=== PATIENT | male | born 1955 | race Caucasian/White ===

== ENCOUNTER → 2021-09-21 | Outpatient (CLI) | payer SELFPAY ==
[2021-09-21 19:40] LABS: BASOPHILS ABSOLUTE AUTO 0.06 K/mm3 (0.00-0.23); BASOPHILS PERCENT AUTO 1 % (0-2); EOSINOPHILS ABSOLUTE AUTO 0.25 K/mm3 (0.00-0.68); EOSINOPHILS PERCENT AUTO 4 % (0-6); Hematocrit 32.4 % (37.0-53.0); Hemoglobin 10.3 g/dL (13.5-17.5); IMMATURE GRAN ABSOLUTE AUTO 0.01 K/mm3 (0.00-0.10); IMMATURE GRAN PERCENT AUTO 0 % (0-1); LYMPHOCYTES ABSOLUTE AUTO 1.86 K/mm3 (0.84-5.20); LYMPHOCYTES PERCENT AUTO 28 % (21-46); MONOCYTES ABSOLUTE AUTO 0.53 K/mm3 (0.16-1.47); MONOCYTES PERCENT AUTO 8 % (4-13); Mean Corpuscular HGB 25.9 pg (26.0-34.0); Mean Corpuscular HGB Conc 31.8 g/dL (31.5-36.5); Mean Corpuscular Volume 81 fL (80-100); NEUTROPHILS ABSOLUTE AUTO 3.91 K/mm3 (1.96-9.15); NEUTROPHILS PERCENT AUTO 59 % (41-73); Platelet Count 157 K/mm3 (150-400); RDW Coefficient Variation 13.3 % (11.7-14.2); RDW Standard Deviation 39.4 fL (35.1-46.3); Red Blood Cell Count 3.98 M/mm3 (4.30-5.90); White Blood Cell Count 6.62 K/mm3 (4.00-11.30)
[2021-09-21 20:05] LABS: Alanine Aminotransfer (ALT/SGP 23 U/L (12-78); Albumin, Blood 3.9 g/dL (3.4-5.0); Albumin/Globulin Ratio 0.9 (0.8-1.8); Alk Phos 84 U/L (50-136); Anion Gap 11 mmol/L (6-16); Aspartate Aminotrans (AST/SGOT 31 U/L (12-37); Bilirubin, Total 1.2 mg/dL (0.1-1.0); Blood Urea Nitrogen 12 mg/dL (8-24); Bun/Creatinine Ratio 11.7 (12.0-20.0); CO2, Blood 20 mmol/L (21-32); Calcium, Blood 9.1 mg/dL (8.5-10.1); Chloride, Blood 107 mmol/L (98-108); Creatinine, Blood 1.03 mg/dL (0.60-1.20); Globulin, Blood 4.2 g/dL (2.2-4.0); Glomerular Filtration Rate >60 (60-); Glucose, Blood 130 mg/dL (70-99); Potassium, Blood 3.8 mmol/L (3.5-5.5); Sodium, Blood 138 mmol/L (136-145); Total Protein, Blood 8.1 g/dL (6.4-8.2)
== END ==
LOC: LAB SHORT 19:03
PROVIDERS: Physician Assistant
DX: K92.0 Hematemesis (principal); I10 Essential (primary) hypertension; R60.0 Localized edema; R53.83 Other fatigue
CPT/HCPCS: 80053; 83880; 84443; 85025

== ENCOUNTER 2021-12-17 12:50 | Day surgery (SDC) | payer BC ==
[~2021-12-17] VITALS: Ht 172.7 cm; Wt 112.1 kg
[~2021-12-17 12:50] MED LIST: Atarax10 MG PO; LOSARTAN POTASS25 M2 PO; OMEP20ER PO; OZEMPIC1 MG/0.72 SQ; PREGABALIN75 MG PO; ROSUVASTATIN CA40 MG PO; [UNRECOGNIZED DRUG - CODE] PO
--- NOTE | 2021-12-17 13:59 | NUR ---
12/17/21 1359 Cortney Whitney 1ST ATTEMPT IN RH INFILTRATED, ATTEMPTED BY ROBERTO PARTIDA 2ND IV ATTEMPT IN RFA INFILTRATED, ATTEMPTED BY MARY KATE SPARROW 3RD IV ATTEMPT IN RAC SUCCESSFUL, 20G PLACED, STARTED BY MARY KATE SPARROW
--- NOTE | 2021-12-17 15:51 | NUR ---
12/17/21 1551 Cortney Whitney LATE ENTRY 4 BANDS PLACED ON VARICES
== END 2021-12-17 15:37 | disposition home or self-care (01) ==
LOC: ORSCSDS 12:50
PROVIDERS: Student in an Organized Health Care Education/Training Program
PROC: 06L38CZ Occlusion of Esophageal Vein with Extraluminal Device, Via Natural or Artificial Opening Endoscopic (ICD-10-PCS; principal; 2021-12-17 14:30)
PROC: 0DB78ZX Excision of Stomach, Pylorus, Via Natural or Artificial Opening Endoscopic, Diagnostic (ICD-10-PCS; principal; 2021-12-17 14:30)
DX: K74.60 Unspecified cirrhosis of liver (principal); I85.10 Secondary esophageal varices without bleeding; K76.6 Portal hypertension; K31.89 Other diseases of stomach and duodenum; K92.0 Hematemesis; R10.13 Epigastric pain; K29.70 Gastritis, unspecified, without bleeding; K92.1 Melena; B96.81 Helicobacter pylori [H. pylori] as the cause of diseases classified elsewhere; E11.42 Type 2 diabetes mellitus with diabetic polyneuropathy; I10 Essential (primary) hypertension; J45.909 Unspecified asthma, uncomplicated; G47.33 Obstructive sleep apnea (adult) (pediatric); Z79.84 Long term (current) use of oral hypoglycemic drugs; Z79.899 Other long term (current) drug therapy; E66.01 Morbid (severe) obesity due to excess calories; Z68.37 Body mass index [BMI] 37.0-37.9, adult
CPT/HCPCS: 82947; 88305; 88342; J2405; J2704; J7120

== ENCOUNTER 2022-05-25 12:26 | Day surgery (SDC) | payer OTHER ==
[~2022-05-25] VITALS: Ht 172.7 cm; Wt 113.8 kg
[2022-05-25] MEDS ORDERED: CORGARD40 MG (12:47)
[2022-05-25] MEDS ORDERED: CETI5 (12:47)
== END 2022-05-25 14:47 | disposition home or self-care (01) ==
LOC: ORSCSDS 12:26
PROVIDERS: Student in an Organized Health Care Education/Training Program
PROC: 06L38CZ Occlusion of Esophageal Vein with Extraluminal Device, Via Natural or Artificial Opening Endoscopic (ICD-10-PCS; principal; 2022-05-25 13:45)
PROC: 0DB68ZX Excision of Stomach, Via Natural or Artificial Opening Endoscopic, Diagnostic (ICD-10-PCS; principal; 2022-05-25 13:45)
DX: K75.81 Nonalcoholic steatohepatitis (NASH) (principal); K74.60 Unspecified cirrhosis of liver; I85.10 Secondary esophageal varices without bleeding; K76.6 Portal hypertension; K31.89 Other diseases of stomach and duodenum; K22.70 Barrett's esophagus without dysplasia; E11.42 Type 2 diabetes mellitus with diabetic polyneuropathy; I10 Essential (primary) hypertension; J45.909 Unspecified asthma, uncomplicated; G47.33 Obstructive sleep apnea (adult) (pediatric); E66.9 Obesity, unspecified; Z68.38 Body mass index [BMI] 38.0-38.9, adult; Z79.51 Long term (current) use of inhaled steroids; Z79.899 Other long term (current) drug therapy
CPT/HCPCS: 82947; 88305; 88342; J2001; J2704; J7120

== ENCOUNTER → 2022-09-22 | Outpatient (CLI) | payer OTHER ==
[~2022-09-22] MED LIST changes: +CETI5; +CORGARD40 MG
[2022-09-22 14:43] LABS: BASOPHILS ABSOLUTE AUTO 0.05 K/mm3 (0.00-0.23); BASOPHILS PERCENT AUTO 1 % (0-2); EOSINOPHILS ABSOLUTE AUTO 0.26 K/mm3 (0.00-0.68); EOSINOPHILS PERCENT AUTO 5 % (0-6); Hematocrit 40.6 % (37.0-53.0); Hemoglobin 14.4 g/dL (13.5-17.5); IMMATURE GRAN ABSOLUTE AUTO 0.01 K/mm3 (0.00-0.10); IMMATURE GRAN PERCENT AUTO 0 % (0-1); LYMPHOCYTES ABSOLUTE AUTO 1.34 K/mm3 (0.84-5.20); LYMPHOCYTES PERCENT AUTO 23 % (21-46); MONOCYTES ABSOLUTE AUTO 0.47 K/mm3 (0.16-1.47); MONOCYTES PERCENT AUTO 8 % (4-13); Mean Corpuscular HGB 31.4 pg (26.0-34.0); Mean Corpuscular HGB Conc 35.5 g/dL (31.5-36.5); Mean Corpuscular Volume 89 fL (80-100); Mean Platelet Volume 10.9 fL (9.1-12.4); NEUTROPHILS ABSOLUTE AUTO 3.71 K/mm3 (1.96-9.15); NEUTROPHILS PERCENT AUTO 64 % (41-73); Platelet Count 91 K/mm3 (150-400); RDW Coefficient Variation 12.8 % (11.7-14.2); RDW Standard Deviation 41.7 fL (35.1-46.3); Red Blood Cell Count 4.58 M/mm3 (4.30-5.90); White Blood Cell Count 5.84 K/mm3 (4.00-11.30)
[2022-09-22 14:45] LABS: Albumin, Blood 3.9 g/dL (3.4-5.0); Bilirubin, Total 1.3 mg/dL (0.1-1.0); Bun/Creatinine Ratio 16.5 (12.0-20.0); Calcium, Blood 9.2 mg/dL (8.5-10.1); Creatinine, Blood 0.97 mg/dL (0.60-1.20); International Normalized Ratio 1.15; Potassium, Blood 4.5 mmol/L (3.5-5.5); Total Protein, Blood 7.9 g/dL (6.4-8.2)
== END | disposition home or self-care (01) ==
LOC: LAB SHORT 11:19
PROVIDERS: Student in an Organized Health Care Education/Training Program
DX: E11.9 Type 2 diabetes mellitus without complications (principal); K92.0 Hematemesis; K74.60 Unspecified cirrhosis of liver
CPT/HCPCS: 80053; 82105; 85025; 85610

== ENCOUNTER 2022-11-09 11:59 | Day surgery (SDC) | payer OTHER ==
[~2022-11-09] VITALS: Ht 172.7 cm; Wt 117.9 kg
== END 2022-11-09 13:44 | disposition home or self-care (01) ==
LOC: ORSCSDS 11:59
PROVIDERS: Student in an Organized Health Care Education/Training Program
PROC: 0DJ08ZZ Inspection of Upper Intestinal Tract, Via Natural or Artificial Opening Endoscopic (ICD-10-PCS; principal; 2022-11-09 14:00)
DX: K74.60 Unspecified cirrhosis of liver (principal); I85.10 Secondary esophageal varices without bleeding; K75.81 Nonalcoholic steatohepatitis (NASH); K76.6 Portal hypertension; K31.89 Other diseases of stomach and duodenum; E11.42 Type 2 diabetes mellitus with diabetic polyneuropathy; G47.33 Obstructive sleep apnea (adult) (pediatric); J45.909 Unspecified asthma, uncomplicated; I10 Essential (primary) hypertension; E66.9 Obesity, unspecified; Z68.39 Body mass index [BMI] 39.0-39.9, adult; Z79.84 Long term (current) use of oral hypoglycemic drugs; Z79.899 Other long term (current) drug therapy
CPT/HCPCS: 82947; J2704; J7120

== ENCOUNTER → 2024-01-17 | Outpatient (CLI) | payer OTHER ==
[2024-01-17 19:15] LABS: Bun/Creatinine Ratio 15.1 (12.0-20.0); Calcium, Blood 9.3 mg/dL (8.5-10.1); Creatinine, Blood 1.06 mg/dL (0.60-1.20); Potassium, Blood 4.3 mmol/L (3.5-5.5)
== END | disposition home or self-care (01) ==
LOC: LAB 17:43 → LAB SHORT 17:43
PROVIDERS: Family Medicine
DX: I87.2 Venous insufficiency (chronic) (peripheral) (principal); R60.0 Localized edema
CPT/HCPCS: 80048

== ENCOUNTER 2024-08-13 12:22 | Day surgery (SDC) | payer OTHER ==
[~2024-08-13] VITALS: Ht 172.7 cm; Wt 111.3 kg
[2024-08-13] MEDS ORDERED: ALBU90OI (12:41)
[2024-08-13] MEDS ORDERED: BISMUTH SUBSAL (12:44)
[2024-08-13] MEDS ORDERED: CARV3.125 (12:46)
[2024-08-13] MEDS ORDERED: DOXYCYCLINE HY100 M1 (12:47)
[2024-08-13] MEDS ORDERED: HYDHCL25 (12:49)
[2024-08-13] MEDS ORDERED: FLUT1DIS2 (12:49)
[2024-08-13] MEDS ORDERED: IPRAT-ALBUT 0.5-3 ML (12:50)
[2024-08-13] MEDS ORDERED: GLYDO6 M2 (12:50)
[2024-08-13] MEDS ORDERED: LOSA25 (12:51)
[2024-08-13] MEDS ORDERED: GLUCOPHAGE1000 M1 (12:53)
[2024-08-13] MEDS ORDERED: Mag-Tab Sr84 MG (12:53)
[2024-08-13] MEDS ORDERED: METR500 (12:54)
[2024-08-13] MEDS ORDERED: Prilosec2.5 MG (12:55)
[2024-08-13] MEDS ORDERED: OZEMPIC2 MG/0.75 (12:55)
[2024-08-13] MEDS ORDERED: LYRICA75 MG (12:56)
[2024-08-13] MEDS ORDERED: POTASSIUM99 M3 (12:56)
[2024-08-13] MEDS ORDERED: CARAFATE1 GM (12:57)
[2024-08-13] MEDS ORDERED: propofoL 50 ML IV ONE ×2 (13:21→14:07)
[2024-08-13] MEDS ORDERED: Lactated Ringer's 1,000 ML IV ONE (13:33)
[2024-08-13 14:49] VITALS: BP 112/70
== END 2024-08-13 15:02 | disposition home or self-care (01) ==
LOC: ORSCSDS 12:22
PROVIDERS: Specialist
PROC: 0DB78ZX Excision of Stomach, Pylorus, Via Natural or Artificial Opening Endoscopic, Diagnostic (ICD-10-PCS; principal; 2024-08-13 13:45)
PROC: 0DBL8ZX Excision of Transverse Colon, Via Natural or Artificial Opening Endoscopic, Diagnostic (ICD-10-PCS; principal; 2024-08-13 13:45)
PROC: 0DBN8ZX Excision of Sigmoid Colon, Via Natural or Artificial Opening Endoscopic, Diagnostic (ICD-10-PCS; principal; 2024-08-13 13:45)
DX: Z12.11 Encounter for screening for malignant neoplasm of colon (principal); I85.00 Esophageal varices without bleeding; K31.7 Polyp of stomach and duodenum; D12.5 Benign neoplasm of sigmoid colon; K51.40 Inflammatory polyps of colon without complications; K75.81 Nonalcoholic steatohepatitis (NASH); K74.69 Other cirrhosis of liver; K76.6 Portal hypertension; K31.89 Other diseases of stomach and duodenum; K64.8 Other hemorrhoids; K57.30 Diverticulosis of large intestine without perforation or abscess without bleeding; Z86.0100 Personal history of colon polyps, unspecified; E11.42 Type 2 diabetes mellitus with diabetic polyneuropathy; I10 Essential (primary) hypertension; J45.909 Unspecified asthma, uncomplicated; Z79.84 Long term (current) use of oral hypoglycemic drugs; Z79.899 Other long term (current) drug therapy; Z79.85 Long-term (current) use of injectable non-insulin antidiabetic drugs; Z79.4 Long term (current) use of insulin
CPT/HCPCS: 82947; 88305; 88342; J2704

== ENCOUNTER 2025-01-01 08:26 | Day surgery (SDC) | payer OTHER ==
[~2025-01-01] VITALS: Ht 172.7 cm; Wt 133.9 kg
[~2025-01-01 08:26] MED LIST changes: +ALBU90OI; +BISMUTH SUBSAL; +CARAFATE1 GM; +CARV3.125 PO; +DOXYCYCLINE HY100 M1; +ELIQUIS5 M2 PO; +FLUT1DIS2; +GLUCOPHAGE1000 M1; +GLYDO6 M2; +HYDHCL25 PO; +IPRAT-ALBUT 0.5-3 ML; +LOSA25; +LYRICA75 MG; +METR500; +Mag-Tab Sr84 MG; +OZEMPIC2 MG/0.75; +POTASSIUM99 M3; +Prilosec2.5 MG
[2025-01-01 09:12] VITALS: BP 127/78
[2025-01-01] MEDS ORDERED: Lidocaine HCl 4% 5 ML SDA ONE (11:33)
[2025-01-01] MEDS ORDERED: propofoL 20 ML IV ONE (11:35)
[2025-01-01] MEDS ORDERED: Phenylephrine HCl 100 MCG/ML-NS 10MLSYR (1MG/10ML) ONE (11:35)
[2025-01-01] MEDS ORDERED: Sugammadex Sodium 200 MG/2ML SDV (100 MG/ML) ONE (11:35)
[2025-01-01] MEDS ORDERED: Rocuronium Bromide 10 MG/ML 5ML Injection IV ONE (11:36)
[2025-01-01] MEDS ORDERED: Heparin Sodium 1000 Units/ML 10ML MDV ONE (11:36)
[2025-01-01] MEDS ORDERED: NS 1,000 ML IV ONE (11:36)
[2025-01-01] MEDS ORDERED: FentaNYL Citrate 50 MCG/ML 2 ML Injection ONE (11:56)
[2025-01-01] MEDS ORDERED: Dexamethasone Sod Phos 10 MG/ML 1ML VIAL ONE (11:56)
[2025-01-01] MEDS ORDERED: Lactated Ringer's 1,000 ML IV ONE (12:04)
[2025-01-01] MEDS ORDERED: Ondansetron HCl 2 MG / ML 2ML Vial ONE (12:32)
[2025-01-01 13:30] VITALS: BP 115/79
--- NOTE | 2025-01-01 13:33 | NUR ---
ARRIVED EARLIER, REPORT RECEIVED, VENOGRAM, ACCESS POPLITEAL RIGHT KNEE, DRESSING INTACT, DENIES PAIN OR CONCERNS, VSS, PENDING D/C.
[2025-01-01 13:45] VITALS: BP 107/79
[2025-01-01 14:00] VITALS: BP 103/79
[2025-01-01 14:30] VITALS: BP 104/76
--- NOTE | 2025-01-01 14:58 | NUR ---
DISCUSS D/C INSTRUCTIONS WITH PATIENT/, CALL/RETURN IF ISSUE, MONITOR SITE, OK REMOVE DRESSING IN 48 HOURS, MED LIST GIVEN AND REVIEWED, DISCUSSED VENOGRAM AFTER CARE AND INSTRUCTIONS GIVEN, SITE REMAINS INTACT, NO CONCERNS. VSS, IV REMOVED, PATIENT DRESSED, NO QUESTIONS, LEFT AT 1450 FROM UNIT WITH VIA WHEELCHAIR.
== END 2025-01-01 14:50 | disposition home or self-care (01) ==
LOC: MHTC 08:26
DX: I87.021 Postthrombotic syndrome with inflammation of right lower extremity (principal); I10 Essential (primary) hypertension; E10.9 Type 1 diabetes mellitus without complications; G47.33 Obstructive sleep apnea (adult) (pediatric); J45.909 Unspecified asthma, uncomplicated; Z87.891 Personal history of nicotine dependence; Z79.01 Long term (current) use of anticoagulants; Z79.84 Long term (current) use of oral hypoglycemic drugs; Z79.899 Other long term (current) drug therapy
CPT/HCPCS: 75820; 76937; C1769; C1894; J1100; J1644; J2003; J2371; J2405; J2704; J3010; J7030; J7120; Q9967

== ENCOUNTER 2025-05-15 17:48 | Emergency (ER) | payer OTHER ==
[~2025-05-15] VITALS: Ht 170.2 cm; Wt 108.4 kg
[2025-05-15 18:21] VITALS: BP 119/80
[2025-05-15] MEDS ORDERED: CEPH500 PO (18:33)
== END 2025-05-15 18:32 | disposition home or self-care (01) ==
LOC: ER 17:48
DX: N39.0 Urinary tract infection, site not specified (principal); Z59.89 Other problems related to housing and economic circumstances
CPT/HCPCS: 99284

== ENCOUNTER → 2025-05-30 | Outpatient (CLI) | payer OTHER ==
[~2025-05-30] MED LIST changes: +CEPH500 PO
[2025-05-30 15:15] LABS: Creatinine, Urine Random 27.0 mg/dL (27.00-270.00); Microalb/Creat Ratio UR, Rand 161.111 mg/g (0.000-30.000); Microalbumin, Random Urine 43.5 mg/L (0.000-20.000)
== END ==
LOC: LAB SHORT 13:20 → LAB 13:20
PROVIDERS: Student in an Organized Health Care Education/Training Program
DX: E11.9 Type 2 diabetes mellitus without complications (principal)
CPT/HCPCS: 82043; 82570; 87077; 87086; 87147; 87186

== ENCOUNTER → 2025-07-08 | Outpatient (CLI) | payer OTHER | LOC: LAB 11:36 → LAB SHORT 11:36 | DX: N39.0 Urinary tract infection, site not specified (principal) | CPT/HCPCS: 87077; 87086; 87186 ==

== ENCOUNTER → 2025-07-08 | Outpatient (CLI) | payer OTHER ==
[2025-07-08 17:25] LABS: Hematocrit 38.6 % (37.0-53.0); Hemoglobin 12.7 g/dL (13.5-17.5); Mean Corpuscular HGB Conc 32.9 g/dL (31.5-36.5); Mean Corpuscular Volume 93 fL (80-100); NRBC ABSOLUTE 0.00 K/mm3 (0.00-0.02); NRBC Auto 0.0 /100 WBC (0.0-0.2); Platelet Count 85 K/mm3 (150-400); RDW Coefficient Variation 17.4 % (11.7-14.2); RDW Standard Deviation 59.1 fL (35.1-46.3)
[2025-07-08 19:10] LABS: Alanine Aminotransfer (ALT/SGP 23 U/L (12-78); Albumin, Blood 3.9 g/dL (3.4-5.0); Albumin/Globulin Ratio 1.1 (0.8-1.8); Anion Gap 10 mmol/L (3-11); Aspartate Aminotrans (AST/SGOT 21 U/L (12-37); Bilirubin, Total 1.4 mg/dL (0.1-1.0); Blood Urea Nitrogen 20 mg/dL (8-24); CO2, Blood 24 mmol/L (21-32); Calcium, Blood 9.6 mg/dL (8.5-10.1); Chloride, Blood 110 mmol/L (98-108); Creatinine, Blood 1.40 mg/dL (0.60-1.20); Globulin, Blood 3.7 g/dL (2.2-4.0); Glucose, Blood 134 mg/dL (70-99); Potassium, Blood 4.3 mmol/L (3.5-5.5); Prostate Specific Antigen 0.364 ng/mL (0.000-4.000); Sodium, Blood 140 mmol/L (136-145); Total Protein, Blood 7.6 g/dL (6.4-8.2)
== END | disposition home or self-care (01) ==
LOC: LAB 11:20 → LAB SHORT 11:20
PROVIDERS: Student in an Organized Health Care Education/Training Program
DX: N39.0 Urinary tract infection, site not specified (principal)
CPT/HCPCS: 80053; 85027; G0103

== ENCOUNTER → 2025-08-07 | Outpatient (CLI) | payer OTHER ==
[2025-08-07 14:33] LABS: Bilirubin, Urine Neg (Neg); Color, Urine Yellow (P-Yellow); Glucose Qualitative, Urine 4+ (Neg); Ketones, Urine Neg (Neg); Leukocyte Esterase, Urine 2+ (Neg); Protein, Urine 1+ (Neg); Specific Gravity, Urine 1.010 (1.003-1.022); Urobilinogen, Urine NORM (Normal)
[2025-08-07 14:42] LABS: Red Blood Cells, Urine 0-2 /hpf (0-2)
== END ==
LOC: LAB SHORT 13:05 → LAB 13:05
PROVIDERS: Student in an Organized Health Care Education/Training Program
DX: R31.0 Gross hematuria (principal); R30.0 Dysuria
CPT/HCPCS: 81001; 87086